=== PATIENT | male | born 1980 | race African-American/Black ===

== ENCOUNTER 2017-08-09 02:38 | Emergency (ER) | payer SELFPAY ==
[~2017-08-09] VITALS: Ht 170.2 cm; Wt 84.5 kg
[2017-08-09 05:52] LABS: APPEARANCE CLEAR ((CLEAR)); BILIRUBIN NEGATIVE; BLOOD NEGATIVE; COLOR YELLOW ((YELLOW)); GLUCOSE (STRIP) NEGATIVE; KETONES NEGATIVE; LEUKOCYTES NEGATIVE; NITRITE NEGATIVE; PROTEIN (STRIP) 30; SPECIFIC GRAVITY 1.026 (1.000-1.030); UCUL ADDED? NO; UROBILINOGEN 0.2 MG/DL (0.2-1.0)
[2017-08-09 06:38] VITALS: BP 146/92
== END 2017-08-09 06:38 | disposition home or self-care (01) ==
LOC: EME 02:38
PROVIDERS: Emergency Medicine
DX: S20.361A Insect bite (nonvenomous) of right front wall of thorax, initial encounter (principal); W57.XXXA Bitten or stung by nonvenomous insect and other nonvenomous arthropods, initial encounter; L98.9 Disorder of the skin and subcutaneous tissue, unspecified; Z11.3 Encounter for screening for infections with a predominantly sexual mode of transmission; Z13.1 Encounter for screening for diabetes mellitus
CPT/HCPCS: 81003; 82948; 99281; 99283